=== PATIENT | female | born 1995 | race Caucasian/White ===

== ENCOUNTER 2024-04-17 22:34 | Emergency (ER) | payer OTHER ==
[~2024-04-17] VITALS: Ht 162.6 cm; Wt 81.6 kg
[2024-04-17 23:19] VITALS: BP 125/78; PULSE 75; RESP 18; TEMP 98.4; O2SAT 100
[2024-04-18] MEDS: BACITRACIN OINT 500 UNITS/GM PKT TP ONE (01:15)
[2024-04-18] MEDS: HYDROcodone/APAP 5/325 MG 1 TAB TAB PO ONE (01:22)
[2024-04-18] MEDS ORDERED: BACI-418 TP (01:29)
[2024-04-18] MEDS ORDERED: ACET-8905 PO (01:29)
[2024-04-18 01:45] VITALS: BP 123/77; PULSE 70; RESP 18; TEMP 98.4; O2SAT 97
== END 2024-04-18 01:45 | disposition home or self-care (01) ==
LOC: MED 22:34
DX: S91.105A Unspecified open wound of left lesser toe(s) without damage to nail, initial encounter (principal); S90.32XA Contusion of left foot, initial encounter; Z79.899 Other long term (current) drug therapy; W22.8XXA Striking against or struck by other objects, initial encounter; Y92.89 Other specified places as the place of occurrence of the external cause; Y93.89 Activity, other specified; Y99.8 Other external cause status
CPT/HCPCS: 73630; 99283